=== PATIENT | female | born 1960 | race Caucasian/White ===

== ENCOUNTER 2024-01-08 14:19 | Observation (INO) | payer MEDICARE ==
[2024-01-08] VITALS (25 sets, daily range): BP systolic 112–219; BP diastolic 59–142
[~2024-01-08] VITALS: Ht 160 cm; Wt 70.0 kg
[2024-01-08 15:22] LABS: BASO% 0.3 % (0-3); EOS% 1.7 % (0-8); HEMATOCRIT 41.3 % (37.0-47.0); HEMOGLOBIN 13.3 g/dl (12.0-16.0); IMMATURE GRANULOCYTES 0.3 % (0.0-5.0); LYMPH% 11.9 % (15-41); MEAN CELL VOLUME 88.6 fL CALC (80.0-100.0); MEAN CORPUSCULAR HGB 28.5 pG CALC (26.0-32.0); MEAN CORPUSCULAR HGB CONC 32.2 g/dL CAL (32.0-36.0); MONO% 7.4 % (2-13); NEUT# 12.24 thou/uL (2.00-7.15); NEUT% 78.4 % (42-76); RED BLOOD COUNT 4.66 mill/uL (4.20-5.60); RED CELL DISTRI WIDTH 16.4 % (11.5-15.5)
--- NOTE | 2024-01-08 15:35 | NUR ---
PT AMBULATED TO ROOM 1 IN ER WITH 10/10 ABDOMINAL PAIN. AOX3, HYPERTENSIVE ON MONITOR, AWARE
[2024-01-08 15:37] LABS: ALBUMIN 4.3 g/dL (3.2-5.0); BILIRUBIN, TOTAL 0.6 mg/dL (0.02-1.3); CREATININE 1.3 mg/dL (0.5-1.0); POTASSIUM 3.9 mmol/l (3.5-5.1); TOTAL PROTEIN 7.6 g/dL (6.3-8.2)
[2024-01-08] MEDS ORDERED: ONDANSETRON HCl 4 MG/2 ML SDV IV ONE (15:55)
[2024-01-08] MEDS ORDERED: MORPHINE SULFATE 4 MG/ML VIAL IV ONE (15:55)
[2024-01-08 16:15] LABS: URINE BLOOD DIPSTICK Negative (NEGATIVE); URINE GLUCOSE - DIPSTICK Negative (NEGATIVE); URINE KETONE Trace mg/dL (NEGATIVE); URINE LEUK ESTERASE Negative (NEGATIVE); URINE NITRITE - DIPSTICK Negative (Negative); URINE PH 5.5 (4.5-8.0); URINE PROTEIN - DIPSTICK 100 mg/dL (NEG-TRACE); URINE SPECIFIC GRAVITY >=1.030; URINE UROBILINOGEN - DIPSTICK 0.2 E.U./dL (0.2)
[2024-01-08 16:20] LABS: URINE COLOR Yellow
[2024-01-08 16:28] LABS: URINE RBC 0-2 RBC/hpf (0-5); URINE SQUAMOUS EPITHELIAL CELL FEW EPI/hpf (0-FEW)
[2024-01-08 16:29] LABS: URINE BACTERIA MODERATE hpf
--- NOTE | 2024-01-08 16:35 | NUR ---
PT IS RESTING IN BED, CONTINUOUS MONITORING IN PLACE
[2024-01-08] MEDS ORDERED: LABETALOL HCL 100 MG/20 ML VIAL IV ONE (17:20)
--- NOTE | 2024-01-08 17:30 | NUR ---
PT RESTING IN BED WITH CALL LIGHT IN REACH, BP NORMALIZING
[2024-01-08] MEDS ORDERED: HYDROmorphone HCL 2 MG/AMP IV ONE (17:45)
--- NOTE | 2024-01-08 17:50 | NUR ---
PT HAS SUDDEN ONSET CHEST PAIN, DID STAT EKG AND MEDICATED WITH PAIN MEDS
[2024-01-08] MEDS ORDERED: PIPERACILLIN Sodium-Tazobactam 3.375 GM in SODIUM CHLORIDE 0.9% 100 ML IV ONE (18:20)
--- NOTE | 2024-01-08 18:50 | NUR ---
PT IS AOX3 RESTING ON M[employer] AUTHOR, BP NORMAL
--- NOTE | 2024-01-08 19:00 | NUR ---
REPORT RECEIVED FROM BACILIO BEDOLLA AND CARE RESUMED BY THIS NURSE AT THIS TIME. CALL LIGHT WITHIN REACH AND PT AWAITING RESULTS.
[2024-01-08] MEDS ORDERED: SODIUM CHLORIDE 0.9% 1,000 ML IV PRN (19:35)
[2024-01-08] MEDS ORDERED: ONDANSETRON HCl 4 MG/2 ML SDV IV PRN (19:35)
[2024-01-08] MEDS ORDERED: NITROGLYCERIN 0.4 MG/TAB SL PRN (19:35)
[2024-01-08] MEDS ORDERED: MAGNESIUM HYDROXIDE 30 ML UDC PO PRN (19:35)
[2024-01-08] MEDS ORDERED: MORPHINE SULFATE 4 MG/ML VIAL IV PRN (19:35)
[2024-01-08] MEDS ORDERED: ACETAMINOPHEN 325 MG/TAB PO PRN (19:35)
[2024-01-08] MEDS ORDERED: hydrALAZINE HCL 20 MG/ML VIAL(1 ML) IV PRN (19:35)
--- NOTE | 2024-01-08 19:56 | NUR ---
REPORT GIVEN TO BACILIO ROBERTS AND PT TO BE TRANSPORTED TO MED SURG. CALL LIGHT WITHIN REACH AND PT HAS NO NEEDS OR CONCERNS.
[2024-01-08] MEDS ORDERED: Pantoprazole Sodium 40 MG VIAL (Protonix) IV SCH (20:00)
--- NOTE | 2024-01-08 20:30 | NUR ---
Admission Note Report Given to: BACILIO ROBERTS Transported by: X Wheelchair Stretcher Transported with: X Nurse Transporter X Patent IV O2 X Test Architect Location: ICU X [facility]
[2024-01-08] MEDS ORDERED: DiphenhydrAMINE HCL 25 MG CPLT PO PRN (20:55)
[2024-01-08] MEDS ORDERED: traZODone HCL 50 MG/TAB PO SCH (21:00)
[2024-01-08] MEDS ORDERED: ATORVASTATIN CALCIUM 40 MG/TAB PO SCH (21:00)
[2024-01-08] MEDS ORDERED: METOPROLOL TARTRATE 25 MG/TAB PO SCH (21:00)
[2024-01-08] MEDS ORDERED: ENOXAPARIN SODIUM 40 MG/0.4 ML SYR SC SCH (21:00)
--- NOTE | 2024-01-08 22:00 | NUR ---
PATIENT REFUSED TO WEAR TELEMETRY, PATIENT STATED ALLERGY TO ADHESIVE, AND FURTHER STATING THAT SHE DOESN'T WANT ANOTHER PROBLEM IF SHE WILL WEAR TELEMETRY. PATIENT EDUCATED WHY SHE IS ON THE MONITOR, STILL REFUSED, MADE AWARE, AND ORDERED TO DO EKG NEEDED FOR CHEST PAIN, SISSY MADE AWARE TO NOTIFY NURSE FOR CHEST PAIN SO WE CAN DO EKG.PATIENT VERBALIZED UNDERSTANDING.
--- NOTE | 2024-01-08 22:04 | NUR ---
patient weight and vitals weight-73.4kg temp-98.2 resp-19 bp-147/79 pulse-86 o2-92
--- NOTE | 2024-01-08 23:00 | NUR ---
RECEIVED REPORT FROM NURSE ALVARADO. PATIENT ARRIVED IN MS UNIT AT 2030, TRANSPORTED VIA WHEELCAHIR,PATIENT ALERT ORIENTED, AMBULATORY, PATIENT ADMITTING DX: DIVERTICULITIS AND CHEST PAIN, ADMISSION ASSEMENT COMPLETED, PATIENT MED RECS DONE, PATIENT REFUSING TELEMETRY STATING ALLERGY TO ADHESIVE AND TEARS HER SKIN AND SHE MALICK HAVE ANOTHER PROBLEM. DR. LEONE MADE AWARE ORDERED EKG NEEDED FOR CHEST PAIN, PATIENT REFUSED TO WEAR NON SKID SOCKS, PATIENT CURRENTLY ON NS @ 100CC/HR INFUSING WELL, CALL LIGHT IN REACHED, SISSY ORIENTED TO ROOM AND CALL LIGHT SYSTEM.
--- NOTE | 2024-01-09 00:02 | NUR ---
PATIENT C/O PAIN ON ABDOMEN AND POUNDING HEADACHE PS 7/10, PRN MORPHINE GIVEN.
[2024-01-09] MEDS ORDERED: BENADRYL 25MG C25 MG PO (00:37)
[2024-01-09] MEDS ORDERED: TRAZODONE50 MG PO (00:38)
--- NOTE | 2024-01-09 03:57 | NUR ---
SISSY RESTIMGIN BED, EYES CLOSED, BREATHING EVEN UNLABORED, NOT IN DISTRESS, ELECTRONIC TESTER IN ROOM FOR MORNING LABS, CALL LIGHT IN REACHED,
[2024-01-09 03:58] VITALS: BP 166/92
[2024-01-09 04:18] VITALS: BP 166/92
[2024-01-09 04:46] LABS: BASO% 0.2 % (0-3); EOS% 0.3 % (0-8); HEMATOCRIT 36.3 % (37.0-47.0); HEMOGLOBIN 11.4 g/dl (12.0-16.0); IMMATURE GRANULOCYTES 0.2 % (0.0-5.0); LYMPH% 16.8 % (15-41); MEAN CELL VOLUME 90.5 fL CALC (80.0-100.0); MEAN CORPUSCULAR HGB 28.4 pG CALC (26.0-32.0); MEAN CORPUSCULAR HGB CONC 31.4 g/dL CAL (32.0-36.0); MONO% 8.6 % (2-13); NEUT# 9.79 thou/uL (2.00-7.15); NEUT% 73.9 % (42-76); RED BLOOD COUNT 4.01 mill/uL (4.20-5.60); RED CELL DISTRI WIDTH 16.7 % (11.5-15.5)
[2024-01-09 05:20] LABS: ALBUMIN 3.5 g/dL (3.2-5.0); BILIRUBIN, TOTAL 0.5 mg/dL (0.02-1.3); CHOLESTEROL HDL RATIO 4.1 (<4.4 (CALC)); CREATININE 1.4 mg/dL (0.5-1.0); MAGNESIUM 1.9 mg/dL (1.6-2.3); POTASSIUM 3.8 mmol/l (3.5-5.1); TOTAL PROTEIN 6.4 g/dL (6.3-8.2)
--- NOTE | 2024-01-09 07:28 | NUR ---
PATIENT LAYING IN BED. PATIENT A&OX4 AND ABLE TO MAKE NEEDS KNOWN. PATIENT ABDOMEN SOFT AND TENDER TO TOUCH PER PAYIENT, RESPIRATIONS EVEN AND UNLABORED. PATIENT REFUSED TO WEAR TELE DUE TO ALLERGIC TO ADHESIVE, MD IS AWARE. PATIENT DENIES ANY NEEDS AT THIS TIME. WILL CONTINUE TO MONITOR.
[2024-01-09] MEDS ORDERED: amLODIPine BESYLATE 5 MG/TAB PO SCH (09:00)
[2024-01-09] MEDS ORDERED: ASPIRIN 81 MG/TAB PO SCH (09:00)
[2024-01-09 09:04] VITALS: BP 164/77
[2024-01-09 11:26] VITALS: BP 152/83
[2024-01-09] MEDS ORDERED: PIPERACILLIN Sodium-Tazobactam 3.375 GM in SODIUM CHLORIDE 0.9% 100 ML IV SCH ×2 (12:00)
--- NOTE | 2024-01-09 12:02 | NUR ---
PATIENT SITTING UP IN BED HAVING LUNCH. PATIENT DENIES ANY NEEDS AT THIS TIME. WILL CONTINUE TO MONITOR.
[2024-01-09 14:58] VITALS: BP 182/97
--- NOTE | 2024-01-09 16:00 | NUR ---
PATIENT LAYING IN BED. PATIENT DENIES ANY NEEDS AT THIS TIME. WILL CONTINUE TO MONITOR.
[2024-01-09 19:09] VITALS: BP 143/83
--- NOTE | 2024-01-09 19:58 | NUR ---
PATIENT IN BED ASLEEP. BED SIDE ASSESMENT COMPLETE. CLEAR LUNG LOVETT. EQUAL PUPULS 3. PATIENT CAN MAKE NEEDS KNOWN. PATIENT REQUESTED A SHOWER, SET PATIENT UP WITH ITEMS FOR SHOWER. BED AT LOWEST POSITION CALL LIGHT WITHIN REACH. TELE ORDER DC PER PROVIDER.
--- NOTE | 2024-01-09 20:00 | NUR ---
Janeth MONTALVO NOTIFIED OF PATIENT REFUSAL TO WEAR [employer] DEVELOPER. ORDER RECEIVED TO DC MONITOR.
--- NOTE | 2024-01-10 00:05 | NUR ---
patient asleep on left side. no distress noted, no signs of pain noted. bed at lowest position, call light within reach.
[2024-01-10 03:43] VITALS: BP 171/82
--- NOTE | 2024-01-10 04:01 | NUR ---
patient asleep in bed on right side. responds to verbal stimuli. can make needs known. call light within reach. bed at lowest position.
[2024-01-10 05:08] VITALS: BP 181/99
[2024-01-10 05:10] LABS: BASO% 0.7 % (0-3); EOS% 1.9 % (0-8); HEMATOCRIT 32.7 % (37.0-47.0); HEMOGLOBIN 10.3 g/dl (12.0-16.0); IMMATURE GRANULOCYTES 0.2 % (0.0-5.0); MEAN CELL VOLUME 91.6 fL CALC (80.0-100.0); MEAN CORPUSCULAR HGB 28.9 pG CALC (26.0-32.0); MEAN CORPUSCULAR HGB CONC 31.5 g/dL CAL (32.0-36.0); MONO% 11.1 % (2-13); NEUT# 6.54 thou/uL (2.00-7.15); NEUT% 61.1 % (42-76); RED BLOOD COUNT 3.57 mill/uL (4.20-5.60); RED CELL DISTRI WIDTH 16.4 % (11.5-15.5)
[2024-01-10 05:20] LABS: BILIRUBIN, TOTAL 0.4 mg/dL (0.02-1.3); CREATININE 1.3 mg/dL (0.5-1.0); POTASSIUM 3.7 mmol/l (3.5-5.1); TOTAL PROTEIN 5.7 g/dL (6.3-8.2)
[2024-01-10 07:01] VITALS: BP 171/101
--- NOTE | 2024-01-10 07:17 | NUR ---
KATIA CHERRY NOTIFIED OF PATIENT REFUSAL TO WEAR SENIOR ECONOMIST. ORDER RECEIVED TO
--- NOTE | 2024-01-10 07:24 | NUR ---
SISSY A/O X3; ROOM AIR; BREATHING UNLABORED AND EVEN; DENIED ANY PAIN; DENIED ANY N/D/V AT THIS TIME; STATES SHE FEELS HER BOWELS ARE MOVING; NO S/S OF DISTRESS; IV SITE IN RAC CLEAN AND INTACT SALINE LOCKED WITH NO ISSUES; MEDICATION REVIWED; ASK HER ABOUT HER BP, SHE STATES SHE ALWAYS HAVE HYPERTENTION; PATIENT SITTING UP RIGHT IN CHAIR; NO COMPLAINTS AT THIS TIME;CALL LIGHT WITHIN REACH,VERBALIZED UNDERSTANDING ON HOW TO UE, PERSONAL ITEMS WITHIN REACH,BED IN LOWEST POSTION; LIMB ALERT SIGN ABOVE BED
--- NOTE | 2024-01-10 07:34 | NUR ---
PER Calli MONTALVO, TELE MONITORING WAS REORDERED. TELE #05 WAS RETRIEVED FROM THE ED AND PLACED AT THE NURSING DESK DUE TO PATIENT REFUSAL.
--- NOTE | 2024-01-10 08:53 | NUR ---
PATIENT BLOOD PRESSURE IS 203/94, INFORMED ORIN ANRP, PROVIDER INCREASED NORVAC TO 10 MG AND ADDED LOPRESSOR; PATIENT INFORMED; WILL RECHECK BLOOD PRESSURE IN ONE HOUR
[2024-01-10] MEDS ORDERED: LOSARTAN Potassium 25 MG/TAB PO SCH ×2 (09:00→11:00)
[2024-01-10] MEDS ORDERED: amLODIPine BESYLATE 5 MG/TAB PO SCH (09:00)
--- NOTE | 2024-01-10 09:23 | NUR ---
PATIENT REFUSES TO WEAR HER LIMB [place]ART [employer] PROVIDER AWARE
[2024-01-10] MEDS ORDERED: ASPIRIN81 MG PO (10:01)
[2024-01-10] MEDS ORDERED: ATORVASTATIN CA40 MG PO (10:02)
[2024-01-10] MEDS ORDERED: COZAAR100 MG PO (10:03)
[2024-01-10] MEDS ORDERED: AMLODIPINE BESY10 MG PO (10:03)
[2024-01-10] MEDS ORDERED: METRONIDAZOLE500 MG PO (10:04)
[2024-01-10] MEDS ORDERED: CIPROFLOXACN500 MG PO (10:04)
--- NOTE | 2024-01-10 10:16 | NUR ---
RECHECKED PATIENT BLOOD PRESSURE 194/95 PULSE IS 74, PROVIDER ORIN AWARE
[2024-01-10 11:20] VITALS: BP 203/94
--- NOTE | 2024-01-10 12:18 | NUR ---
IV site discontinued, cath intact. No edema , no redness, voices no discomfort. Discharge instructions given. Patient verbalizes understanding of same. Discharged in stable condition via Wheelchair to Home with family. All belongings sent with pt.
== END 2024-01-10 12:20 | disposition home or self-care (01) ==
LOC: ED 14:19 → ED-I 19:10 → ED 19:22 → MS2 19:23
PROVIDERS: Family Medicine; Nurse Practitioner Family; ADMIT Student in an Organized Health Care Education/Training Program; ATTEND Student in an Organized Health Care Education/Training Program
DX: K57.32 Diverticulitis of large intestine without perforation or abscess without bleeding (principal); R07.9 Chest pain, unspecified; I10 Essential (primary) hypertension; I25.10 Atherosclerotic heart disease of native coronary artery without angina pectoris; J44.9 Chronic obstructive pulmonary disease, unspecified; I25.2 Old myocardial infarction; F17.210 Nicotine dependence, cigarettes, uncomplicated; Z95.5 Presence of coronary angioplasty implant and graft; Z90.49 Acquired absence of other specified parts of digestive tract; Z91.199 Patient's noncompliance with other medical treatment and regimen due to unspecified reason
CPT/HCPCS: J1650; J2470; Q9967

== ENCOUNTER 2024-06-11 19:23 | Emergency (ER) | payer MEDICARE ==
[2024-06-11] VITALS (10 sets, daily range): BP systolic 172–212; BP diastolic 104–122
[~2024-06-11] VITALS: Ht 160 cm; Wt 75.0 kg
[~2024-06-11 19:23] MED LIST: AMLODIPINE BESY10 MG PO; ASPIRIN81 MG PO; ATORVASTATIN CA40 MG PO; BENADRYL 25MG C25 MG PO; CIPROFLOXACN500 MG PO; COZAAR100 MG PO; COZAAR25 MG PO; LASIX20 MG PO; METRONIDAZOLE500 MG PO; OMNICEF300 MG PO; TAMIFLU30 MG PO; TOPROL XL25 M1 PO; TRAZODONE50 MG PO; ZITHROMAX250 MG PO; ZOFRAN4 MG/TAB PO
[2024-06-11] MEDS ORDERED: traMADol HCL 50 MG/TAB PO ONE (19:50)
[2024-06-11] MEDS ORDERED: KETOROLAC TROMETHAMINE 30 MG/ML SDV IV ONE (19:50)
[2024-06-11 19:52] LABS: BASO% 0.4 % (0-3); EOS% 1.2 % (0-8); HEMATOCRIT 33.2 % (37.0-47.0); IMMATURE GRANULOCYTES 0.2 % (0.0-5.0); LYMPH% 21.6 % (15-41); MEAN CORPUSCULAR HGB 25.1 pG CALC (26.0-32.0); MEAN CORPUSCULAR HGB CONC 30.1 g/dL CAL (32.0-36.0); MONO% 6.1 % (2-13); NEUT# 6.54 thou/uL (2.00-7.15); NEUT% 70.5 % (42-76); RED BLOOD COUNT 3.99 mill/uL (4.20-5.60); RED CELL DISTRI WIDTH 16.9 % (11.5-15.5)
[2024-06-11 19:53] LABS: MEAN CELL VOLUME 83.2 fL CALC (80.0-100.0)
[2024-06-11 20:03] LABS: ALBUMIN 4.3 g/dL (3.2-5.0); CREATININE 1.3 mg/dL (0.5-1.0); POTASSIUM 3.4 mmol/l (3.5-5.1); TOTAL PROTEIN 7.9 g/dL (6.3-8.2)
[2024-06-11 20:05] LABS: BILIRUBIN, TOTAL 0.5 mg/dL (0.02-1.3)
[2024-06-11] MEDS ORDERED: METOPROLOL TARTRATE 25 MG/TAB PO ONE (20:10)
[2024-06-11] MEDS ORDERED: METOPROLOL TARTRATE 5 MG/5 ML VIAL IV ONE (20:10)
[2024-06-11] MEDS ORDERED: SODIUM CHLORIDE 0.9% 1,000 ML IV ONE (20:10)
[2024-06-11 20:13] LABS: D-DIMER < 0.19 mg/L (0.19-0.60)
[2024-06-11 20:14] LABS: INTERNATIONAL NORMALIZED RATIO 1.1 RATIO (0.7-1.3)
[2024-06-11 20:18] LABS: ACT PARTIAL THROMBO TIME 37.8 SECONDS (20.0-32.5); PROTHROMBIN TIME 11.8 SECONDS (9.0-12.5)
[2024-06-11] MEDS ORDERED: NITROGLYCERIN 2% OINT UD 1 GM/PAK TD ONE (20:30)
[2024-06-11] MEDS ORDERED: Heparin SODIUM (Porcine) 5,000 UNITS/ML SDV IV ONE (20:30)
[2024-06-11] MEDS ORDERED: Heparin SODIUM (Porcine) 500 ML IV ONE (20:30)
[2024-06-11] MEDS ORDERED: MORPHINE SULFATE 4 MG/ML VIAL IV ONE ×2 (20:30→21:10)
[2024-06-11] MEDS ORDERED: NITROGLYCERIN IN D5W 250 ML IV ONE (21:10)
[2024-06-11] MEDS ORDERED: SODIUM CHLORIDE 0.9% 250 ML IV PRN (21:10)
== END 2024-06-11 21:19 | disposition short-term general hospital (02) ==
LOC: ED 19:23
PROVIDERS: Family Medicine
DX: R07.9 Chest pain, unspecified (principal); R79.89 Other specified abnormal findings of blood chemistry; I10 Essential (primary) hypertension; I25.10 Atherosclerotic heart disease of native coronary artery without angina pectoris; J44.9 Chronic obstructive pulmonary disease, unspecified; I25.2 Old myocardial infarction; F17.200 Nicotine dependence, unspecified, uncomplicated; Z95.5 Presence of coronary angioplasty implant and graft
CPT/HCPCS: J1644

== ENCOUNTER 2024-08-09 20:48 | Inpatient (IN) | payer MEDICARE ==
[~2024-08-09] VITALS: Ht 160 cm; Wt 76.1 kg
[2024-08-09] MEDS ORDERED: IPRATROPIUM-Albuterol 0.5MG-2.5MG/3 ML NEB ONE (21:25)
[2024-08-09] MEDS ORDERED: ALBUTEROL SULFATE 2.5 MG VIAL IN ONE (21:25)
[2024-08-09 21:48] LABS: BASO% 0.7 % (0-3); EOS% 1.6 % (0-8); HEMATOCRIT 28.5 % (37.0-47.0); HEMOGLOBIN 8.3 g/dl (12.0-16.0); IMMATURE GRANULOCYTES 0.3 % (0.0-5.0); LYMPH% 24.7 % (15-41); MEAN CELL VOLUME 82.6 fL CALC (80.0-100.0); MEAN CORPUSCULAR HGB 24.1 pG CALC (26.0-32.0); MEAN CORPUSCULAR HGB CONC 29.1 g/dL CAL (32.0-36.0); MONO% 6.2 % (2-13); NEUT# 5.97 thou/uL (2.00-7.15); NEUT% 66.5 % (42-76); RED BLOOD COUNT 3.45 mill/uL (4.20-5.60)
[2024-08-09 21:59] LABS: ALBUMIN 4.1 g/dL (3.2-5.0); BILIRUBIN, TOTAL 0.6 mg/dL (0.02-1.3); CREATININE 1.3 mg/dL (0.5-1.0); POTASSIUM 3.5 mmol/l (3.5-5.1); TOTAL PROTEIN 7.4 g/dL (6.3-8.2)
[2024-08-09 23:16] VITALS: BP 198/107
[2024-08-09 23:30] VITALS: BP 214/122
[2024-08-09 23:32] VITALS: BP 209/122
[2024-08-09] MEDS ORDERED: FUROSEMIDE 40 MG/4 ML SDV IV ONE (23:35)
[2024-08-09] MEDS ORDERED: NITROGLYCERIN 2% OINT UD 1 GM/PAK TD ONE (23:40)
[2024-08-09 23:53] VITALS: BP 213/125
[2024-08-09] MEDS ORDERED: LABETALOL HCL 20 MG/ 4 ML CARTRG IV ONE (23:55)
[2024-08-10] VITALS (41 sets, daily range): BP systolic 134–215; BP diastolic 68–121
[2024-08-10] MEDS ORDERED: MORPHINE SULFATE 4 MG/ML VIAL IV ONE (00:55)
[2024-08-10] MEDS ORDERED: ONDANSETRON HCl 4 MG/2 ML SDV IV ONE (00:55)
[2024-08-10] MEDS ORDERED: LORazepam 2 MG/ML IV ONE (02:10)
[2024-08-10] MEDS ORDERED: LORazepam 1 MG/TAB PO ONE (02:30)
[2024-08-10] MEDS ORDERED: IPRATROPIUM-Albuterol 0.5MG-2.5MG/3 ML NEB PRN (05:20)
[2024-08-10] MEDS ORDERED: FUROSEMIDE 40 MG/4 ML SDV IV SCH ×3 (07:00→11:00)
[2024-08-10 07:44] LABS: BASO% 0.5 % (0-3); EOS% 1.8 % (0-8); HEMATOCRIT 26.6 % (37.0-47.0); HEMOGLOBIN 7.9 g/dl (12.0-16.0); IMMATURE GRANULOCYTES 0.4 % (0.0-5.0); LYMPH% 30.8 % (15-41); MEAN CELL VOLUME 82.6 fL CALC (80.0-100.0); MEAN CORPUSCULAR HGB 24.5 pG CALC (26.0-32.0); MEAN CORPUSCULAR HGB CONC 29.7 g/dL CAL (32.0-36.0); MONO% 8.3 % (2-13); NEUT# 4.98 thou/uL (2.00-7.15); NEUT% 58.2 % (42-76); RED BLOOD COUNT 3.22 mill/uL (4.20-5.60)
[2024-08-10 08:16] LABS: ALBUMIN 3.8 g/dL (3.2-5.0); BILIRUBIN, TOTAL 0.6 mg/dL (0.02-1.3); CREATININE 1.3 mg/dL (0.5-1.0); POTASSIUM 3.7 mmol/l (3.5-5.1)
[2024-08-10] MEDS ORDERED: LOSARTAN Potassium 25 MG/TAB PO SCH (09:00)
[2024-08-10] MEDS ORDERED: SODIUM CHLORIDE 0.9% 500 ML IV ONE (10:20)
[2024-08-10] MEDS ORDERED: predniSONE 20 MG/TAB PO SCH (11:00)
[2024-08-10] MEDS ORDERED: AZITHROMYCIN 500 MG in SODIUM CHLORIDE 0.9% 250 ML IV SCH (12:00)
[2024-08-10] MEDS ORDERED: traMADol HCL 50 MG/TAB PO PRN (12:30)
[2024-08-10] MEDS ORDERED: IPRATROPIUM-Albuterol 0.5MG-2.5MG/3 ML NEB SCH (13:00)
[2024-08-10] MEDS ORDERED: FUROSEMIDE20 MG PO (13:48)
[2024-08-10] MEDS ORDERED: METOPROLOL SUCC50 MG PO (13:49)
[2024-08-10] MEDS ORDERED: LIPITOR40 M1 PO (13:50)
[2024-08-11 04:07] VITALS: BP 154/84
[2024-08-11 05:16] LABS: BASO% 0.3 % (0-3); HEMATOCRIT 26.2 % (37.0-47.0); HEMOGLOBIN 7.7 g/dl (12.0-16.0); IMMATURE GRANULOCYTES 1.7 % (0.0-5.0); MEAN CELL VOLUME 84.2 fL CALC (80.0-100.0); MEAN CORPUSCULAR HGB 24.8 pG CALC (26.0-32.0); MEAN CORPUSCULAR HGB CONC 29.4 g/dL CAL (32.0-36.0); MONO% 2.8 % (2-13); NEUT# 5.01 thou/uL (2.00-7.15); NEUT% 79.2 % (42-76); RED BLOOD COUNT 3.11 mill/uL (4.20-5.60); RED CELL DISTRI WIDTH 19.7 % (11.5-15.5)
[2024-08-11 05:28] LABS: ALBUMIN 3.5 g/dL (3.2-5.0); BILIRUBIN, TOTAL 0.4 mg/dL (0.02-1.3); CREATININE 1.4 mg/dL (0.5-1.0); TOTAL PROTEIN 6.6 g/dL (6.3-8.2)
[2024-08-11 07:00] VITALS: BP 149/88
[2024-08-11] MEDS ORDERED: Pantoprazole Sodium 40 MG VIAL (Protonix) IV SCH ×2 (10:30→21:00)
[2024-08-11 11:00] LABS: HEMATOCRIT 27.8 % (37.0-47.0)
[2024-08-11 11:12] VITALS: BP 155/84
[2024-08-11 17:29] LABS: HEMATOCRIT 28.4 % (37.0-47.0); HEMOGLOBIN 8.3 g/dl (12.0-16.0)
[2024-08-11 18:18] VITALS: BP 143/71
[2024-08-11] MEDS ORDERED: ARTIFICIAL TEAR OU PRN (22:25)
[2024-08-11] MEDS ORDERED: ARTIFICIAL TEARS SOLUTION 15 ML/BTL OU PRN (22:25)
[2024-08-11 23:05] LABS: HEMOGLOBIN 8.1 g/dl (12.0-16.0)
[2024-08-12] VITALS: BP 150/85
[2024-08-12 04:28] VITALS: BP 151/92
[2024-08-12 05:05] LABS: BASO% 0.1 % (0-3); HEMATOCRIT 27.8 % (37.0-47.0); IMMATURE GRANULOCYTES 3.1 % (0.0-5.0); LYMPH% 17.4 % (15-41); MEAN CELL VOLUME 83.5 fL CALC (80.0-100.0); MEAN CORPUSCULAR HGB CONC 28.8 g/dL CAL (32.0-36.0); MONO% 3.7 % (2-13); NEUT# 5.66 thou/uL (2.00-7.15); NEUT% 75.7 % (42-76); RED BLOOD COUNT 3.33 mill/uL (4.20-5.60)
[2024-08-12 05:14] LABS: ALBUMIN 3.8 g/dL (3.2-5.0); BILIRUBIN, TOTAL 0.4 mg/dL (0.02-1.3); CREATININE 1.5 mg/dL (0.5-1.0); MAGNESIUM 2.1 mg/dL (1.6-2.3); POTASSIUM 4.1 mmol/l (3.5-5.1); TOTAL PROTEIN 6.9 g/dL (6.3-8.2)
[2024-08-12 06:01] VITALS: BP 157/82
[2024-08-12 10:34] LABS: URINE BILIRUBIN - DIPSTICK Negative (NEGATIVE); URINE BLOOD DIPSTICK Negative (NEGATIVE); URINE GLUCOSE - DIPSTICK Negative (NEGATIVE); URINE KETONE Negative (NEGATIVE); URINE LEUK ESTERASE Negative (NEGATIVE); URINE NITRITE - DIPSTICK Negative (Negative); URINE PROTEIN - DIPSTICK Trace mg/dL (NEG-TRACE); URINE UROBILINOGEN - DIPSTICK 0.2 E.U./dL (0.2)
[2024-08-12 10:39] VITALS: BP 148/80
[2024-08-12 10:50] LABS: URINE COLOR Yellow
[2024-08-12 15:11] VITALS: BP 172/104
[2024-08-12 19:17] VITALS: BP 150/81
[2024-08-13 00:05] VITALS: BP 164/95
[2024-08-13 04:32] LABS: BASO% 0.1 % (0-3); HEMATOCRIT 27.1 % (37.0-47.0); HEMOGLOBIN 8.1 g/dl (12.0-16.0); IMMATURE GRANULOCYTES 2.2 % (0.0-5.0); LYMPH% 19.9 % (15-41); MEAN CELL VOLUME 81.9 fL CALC (80.0-100.0); MEAN CORPUSCULAR HGB 24.5 pG CALC (26.0-32.0); MEAN CORPUSCULAR HGB CONC 29.9 g/dL CAL (32.0-36.0); MONO% 4.9 % (2-13); NEUT# 5.55 thou/uL (2.00-7.15); NEUT% 72.9 % (42-76); RED BLOOD COUNT 3.31 mill/uL (4.20-5.60); RED CELL DISTRI WIDTH 19.8 % (11.5-15.5)
[2024-08-13 04:43] LABS: ALBUMIN 3.7 g/dL (3.2-5.0); BILIRUBIN, TOTAL 0.4 mg/dL (0.02-1.3); CREATININE 1.5 mg/dL (0.5-1.0); MAGNESIUM 2.1 mg/dL (1.6-2.3); POTASSIUM 3.8 mmol/l (3.5-5.1); TOTAL PROTEIN 6.7 g/dL (6.3-8.2)
[2024-08-13 06:37] VITALS: BP 161/93
[2024-08-13] MEDS ORDERED: METOPROLOL SUCC50 MG PO (10:08)
[2024-08-13] MEDS ORDERED: LIPITOR40 M1 PO (10:08)
[2024-08-13] MEDS ORDERED: FUROSEMIDE20 MG PO (10:09)
[2024-08-13] MEDS ORDERED: LOSARTAN POTASS25 MG PO (10:09)
[2024-08-13] MEDS ORDERED: PROTONIX40 M2 PO (10:10)
[2024-08-13] MEDS ORDERED: DOXYCYCLINE100 MG PO (10:11)
[2024-08-13] MEDS ORDERED: PREDNISONE10 MG PO (10:11)
[2024-08-13] MEDS ORDERED: LEXAPRO10 MG PO (10:12)
[2024-08-13] MEDS ORDERED: SODIUM CHLORIDE 0.9% 0 ML IV ONE (10:34)
[2024-08-13] MEDS ORDERED: IRON SUCROSE COMPLEX 200 MG in SODIUM CHLORIDE 0.9% 100 ML IV SCH (11:00)
== END 2024-08-13 13:59 | disposition home or self-care (01) | DRG 291 ==
LOC: ED 20:48 → ED-I 08-10 04:57 → ED 08-10 05:12 → MS2 08-10 05:13
PROVIDERS: Family Medicine; Internal Medicine; Nurse Practitioner Family; ADMIT Internal Medicine; ATTEND Internal Medicine
DX: I13.0 Hypertensive heart and chronic kidney disease with heart failure and stage 1 through stage 4 chronic kidney disease, or unspecified chronic kidney disease (principal); I50.33 Acute on chronic diastolic (congestive) heart failure; J18.9 Pneumonia, unspecified organism; J44.1 Chronic obstructive pulmonary disease with (acute) exacerbation; J44.0 Chronic obstructive pulmonary disease with (acute) lower respiratory infection; D63.1 Anemia in chronic kidney disease; N18.31 Chronic kidney disease, stage 3a; I25.10 Atherosclerotic heart disease of native coronary artery without angina pectoris; F32.A Depression, unspecified; F17.290 Nicotine dependence, other tobacco product, uncomplicated; T46.5X6A Underdosing of other antihypertensive drugs, initial encounter; Z91.128 Patient's intentional underdosing of medication regimen for other reason; Z95.5 Presence of coronary angioplasty implant and graft; Z59.89 Other problems related to housing and economic circumstances; Z53.20 Procedure and treatment not carried out because of patient's decision for unspecified reasons
CPT/HCPCS: J0456; J0696; J1756; J1940; J2405; J2470; Q9967

== ENCOUNTER 2024-08-15 03:58 | Emergency (ER) | payer MEDICARE ==
[~2024-08-15] VITALS: Ht 160 cm; Wt 68.0 kg
[~2024-08-15 03:58] MED LIST changes: +DOXYCYCLINE100 MG PO; +FUROSEMIDE20 MG PO; +LEXAPRO10 MG PO; +LIPITOR40 M1 PO; +LOSARTAN POTASS25 MG PO; +METOPROLOL SUCC50 MG PO; +PREDNISONE10 MG PO; +PROTONIX40 M2 PO
[2024-08-15 04:28] VITALS: BP 208/116
[2024-08-15 04:28] LABS: BASO% 0.1 % (0-3); EOS% 2.1 % (0-8); LYMPH% 33.3 % (15-41); MEAN CELL VOLUME 82.9 fL CALC (80.0-100.0); MEAN CORPUSCULAR HGB 24.4 pG CALC (26.0-32.0); MEAN CORPUSCULAR HGB CONC 29.5 g/dL CAL (32.0-36.0); MONO% 10.9 % (2-13); NEUT# 6.96 thou/uL (2.00-7.15); NEUT% 51.6 % (42-76); RED BLOOD COUNT 4.09 mill/uL (4.20-5.60); RED CELL DISTRI WIDTH 19.8 % (11.5-15.5)
[2024-08-15 04:30] VITALS: BP 198/114
[2024-08-15] MEDS ORDERED: ENALAPRILAT 1.25 MG/ML 1ML IV ONE ×2 (04:30→04:50)
[2024-08-15 04:40] LABS: BILIRUBIN, TOTAL 0.5 mg/dL (0.02-1.3); CREATININE 1.5 mg/dL (0.5-1.0); POTASSIUM 3.3 mmol/l (3.5-5.1); TOTAL PROTEIN 7.3 g/dL (6.3-8.2)
[2024-08-15] MEDS ORDERED: IPRATROPIUM-Albuterol 0.5MG-2.5MG/3 ML NEB ONE (04:50)
[2024-08-15 04:51] LABS: HEMATOCRIT 33.9 % (37.0-47.0)
[2024-08-15 04:59] LABS: ACT PARTIAL THROMBO TIME 29.2 SECONDS (20.0-32.5); D-DIMER 0.43 mg/L (0.19-0.60); INTERNATIONAL NORMALIZED RATIO 1.1 RATIO (0.7-1.3)
[2024-08-15 05:00] VITALS: BP 199/110
[2024-08-15 05:02] LABS: PROTHROMBIN TIME 11.4 SECONDS (9.0-12.5)
[2024-08-15 05:26] VITALS: BP 146/71
[2024-08-15 05:30] VITALS: BP 152/75
[2024-08-15] MEDS ORDERED: POTASSIUM CHLORIDE 20 MEQ/TAB PO ONE (05:30)
[2024-08-15] MEDS ORDERED: FUROSEMIDE 40 MG/4 ML SDV IV ONE (05:30)
[2024-08-15 05:42] VITALS: BP 152/75
--- NOTE | 2024-08-15 12:21 | NUR ---
Discharge follow up call completed 08/15/24. Patient states she is having terrible pain that is traveling to her lower extremities in addition to the remainder of her body. Patient describes it as a nerve type pain. Patient returned to [facility] ED last night but they did not resolve her issues. Patient states her PCP is in [place]. She has seen local physician but has not called him to schedule a follow up appointment. Encouraged patient to either contact local provider or to return to ED if symptoms continue to intensify or do not improve. Notified [facility] of patient conversation and they will inform hospitalist and determine if their office will reach out to patient. No other needs verbalized by patient.
== END 2024-08-15 05:50 | disposition home or self-care (01) ==
LOC: ED 03:58
PROVIDERS: Emergency Medicine
DX: J10.00 Influenza due to other identified influenza virus with unspecified type of pneumonia (principal); I25.10 Atherosclerotic heart disease of native coronary artery without angina pectoris; I11.0 Hypertensive heart disease with heart failure; I50.9 Heart failure, unspecified; J44.9 Chronic obstructive pulmonary disease, unspecified; E78.5 Hyperlipidemia, unspecified; I25.2 Old myocardial infarction; Z95.5 Presence of coronary angioplasty implant and graft; Z20.822 Contact with and (suspected) exposure to COVID-19
CPT/HCPCS: J1940

== ENCOUNTER 2024-08-30 16:23 | Inpatient (IN) | payer MEDICARE ==
[2024-08-30] VITALS (28 sets, daily range): BP systolic 96–184; BP diastolic 56–111
[~2024-08-30] VITALS: Ht 160 cm; Wt 73.4 kg
[2024-08-30] MEDS ORDERED: IPRATROPIUM-Albuterol 0.5MG-2.5MG/3 ML NEB ONE ×3 (16:50)
[2024-08-30] MEDS ORDERED: methylPREDNISolone SODIUM SUCC 125 MG/2 ML SDV IV ONE (16:50)
[2024-08-30] MEDS ORDERED: FUROSEMIDE 40 MG/4 ML SDV IV ONE (16:50)
[2024-08-30 17:05] LABS: BASO% 0.4 % (0-3); EOS% 1.6 % (0-8); IMMATURE GRANULOCYTES 0.5 % (0.0-5.0); LYMPH% 20.2 % (15-41); MEAN CELL VOLUME 83.5 fL CALC (80.0-100.0); MEAN CORPUSCULAR HGB CONC 28.7 g/dL CAL (32.0-36.0); MONO% 7.6 % (2-13); NEUT# 5.92 thou/uL (2.00-7.15); NEUT% 69.7 % (42-76); RED BLOOD COUNT 3.34 mill/uL (4.20-5.60); RED CELL DISTRI WIDTH 20.6 % (11.5-15.5)
[2024-08-30 17:08] LABS: HEMATOCRIT 27.9 % (37.0-47.0)
[2024-08-30 17:10] LABS: BILIRUBIN, TOTAL 0.7 mg/dL (0.02-1.3); CREATININE 1.1 mg/dL (0.5-1.0); TOTAL PROTEIN 7.7 g/dL (6.3-8.2)
[2024-08-30 17:20] LABS: POTASSIUM 4.1 mmol/l (3.5-5.1)
[2024-08-30] MEDS ORDERED: NITROGLYCERIN 2% OINT UD 1 GM/PAK TD ONE (18:20)
[2024-08-30 19:11] LABS: URINE BILIRUBIN - DIPSTICK Negative (NEGATIVE); URINE BLOOD DIPSTICK Negative (NEGATIVE); URINE GLUCOSE - DIPSTICK Negative (NEGATIVE); URINE KETONE Negative (NEGATIVE); URINE LEUK ESTERASE Negative (NEGATIVE); URINE NITRITE - DIPSTICK Negative (Negative); URINE PROTEIN - DIPSTICK Negative (NEG-TRACE); URINE UROBILINOGEN - DIPSTICK 0.2 E.U./dL (0.2)
[2024-08-30 19:12] LABS: URINE COLOR Yellow
[2024-08-30] MEDS ORDERED: Acetaminophen 300 MG/Codeine 30 MG/COMBO PO ONE (19:40)
[2024-08-30] MEDS ORDERED: ASPIRIN 81 MG/TAB PO ONE (19:40)
[2024-08-30] MEDS ORDERED: LOSARTAN Potassium 25 MG/TAB PO SCH (21:59)
[2024-08-30] MEDS ORDERED: MAGNESIUM HYDROXIDE 30 ML UDC PO PRN (22:00)
[2024-08-30] MEDS ORDERED: ACETAMINOPHEN 325 MG/TAB PO PRN (22:00)
[2024-08-30] MEDS ORDERED: FUROSEMIDE 40 MG/4 ML SDV IV SCH (22:02)
[2024-08-30] MEDS ORDERED: cloNIDine HCL 0.1 MG/TAB PO ONE ×2 (22:25)
[2024-08-30] MEDS ORDERED: IPRATROPIUM-Albuterol 0.5MG-2.5MG/3 ML NEB SCH (23:00)
[2024-08-30] MEDS ORDERED: AZITHROMYCIN 500 MG in SODIUM CHLORIDE 0.9% 250 ML IV SCH (23:45)
[2024-08-31] VITALS (14 sets, daily range): BP systolic 113–183; BP diastolic 67–100
[2024-08-31 03:37] LABS: BASO% 0.3 % (0-3); HEMATOCRIT 25.6 % (37.0-47.0); HEMOGLOBIN 7.3 g/dl (12.0-16.0); IMMATURE GRANULOCYTES 0.9 % (0.0-5.0); MEAN CELL VOLUME 82.6 fL CALC (80.0-100.0); MEAN CORPUSCULAR HGB 23.5 pG CALC (26.0-32.0); MEAN CORPUSCULAR HGB CONC 28.5 g/dL CAL (32.0-36.0); MONO% 1.3 % (2-13); NEUT# 6.53 thou/uL (2.00-7.15); NEUT% 87.5 % (42-76); RED BLOOD COUNT 3.1 mill/uL (4.20-5.60); RED CELL DISTRI WIDTH 20.5 % (11.5-15.5)
[2024-08-31 03:46] LABS: ALBUMIN 3.5 g/dL (3.2-5.0); CREATININE 1.2 mg/dL (0.5-1.0); POTASSIUM 4.2 mmol/l (3.5-5.1); TOTAL PROTEIN 6.7 g/dL (6.3-8.2)
[2024-08-31 03:49] LABS: BILIRUBIN, TOTAL 0.4 mg/dL (0.02-1.3)
[2024-08-31] MEDS ORDERED: methylPREDNISolone Sod Succ 40 MG/ML SDV IV SCH (09:00)
[2024-08-31] MEDS ORDERED: METOPROLOL SUCCINATE 50 MG/TAB PO SCH (09:00)
[2024-08-31] MEDS ORDERED: PANTOPRAZOLE SODIUM Sesquihydr 40 MG/TAB PO SCH (09:00)
[2024-08-31] MEDS ORDERED: SODIUM CHLORIDE 0.9% 500 ML IV ONE ×2 (10:25→19:28)
[2024-08-31] MEDS ORDERED: ESCITALOPRAM 10 MG/TAB PO SCH (11:00)
[2024-08-31] MEDS ORDERED: FUROSEMIDE 40 MG/4 ML SDV IV SCH (11:00)
[2024-08-31] MEDS ORDERED: ATORVASTATIN CALCIUM 40 MG/TAB PO SCH (21:00)
[2024-08-31] MEDS ORDERED: AZITHROMYCIN 500 MG in SODIUM CHLORIDE 0.9% 250 ML IV SCH (22:00)
[2024-09-01 00:07] VITALS: BP 163/95
[2024-09-01 03:44] VITALS: BP 174/104
[2024-09-01 05:41] LABS: ALBUMIN 4.2 g/dL (3.2-5.0); BILIRUBIN, TOTAL 0.5 mg/dL (0.02-1.3); CREATININE 1.3 mg/dL (0.5-1.0); MAGNESIUM 2.3 mg/dL (1.6-2.3); POTASSIUM 4.5 mmol/l (3.5-5.1); TOTAL PROTEIN 7.8 g/dL (6.3-8.2)
[2024-09-01 05:43] LABS: BASO% 0.1 % (0-3); IMMATURE GRANULOCYTES 1.1 % (0.0-5.0); LYMPH% 9.1 % (15-41); MEAN CORPUSCULAR HGB 25.2 pG CALC (26.0-32.0); MONO% 1.9 % (2-13); NEUT# 9.97 thou/uL (2.00-7.15); NEUT% 87.8 % (42-76); RED BLOOD COUNT 4.13 mill/uL (4.20-5.60); RED CELL DISTRI WIDTH 19.4 % (11.5-15.5)
[2024-09-01 05:44] LABS: HEMATOCRIT 34.7 % (37.0-47.0); HEMOGLOBIN 10.4 g/dl (12.0-16.0)
[2024-09-01 07:00] VITALS: BP 179/85
[2024-09-01] MEDS ORDERED: guaiFENesin-CODEINE 200-20 MG/10 ML UDC PO PRN (10:05)
[2024-09-01 10:54] VITALS: BP 162/96
[2024-09-01] MEDS ORDERED: DOXYCYCLINE HYCLATE 100 MG/CAP PO SCH (11:00)
[2024-09-01] MEDS ORDERED: Cefdinir 300 MG/CAP PO SCH (11:00)
[2024-09-01 14:20] VITALS: BP 173/101
[2024-09-01 21:15] VITALS: BP 165/88
[2024-09-02] VITALS (8 sets, daily range): BP systolic 149–194; BP diastolic 68–110
[2024-09-02 04:56] LABS: HEMATOCRIT 33.7 % (37.0-47.0); HEMOGLOBIN 10.2 g/dl (12.0-16.0); MEAN CORPUSCULAR HGB 25.4 pG CALC (26.0-32.0); MEAN CORPUSCULAR HGB CONC 30.3 g/dL CAL (32.0-36.0); RED BLOOD COUNT 4.01 mill/uL (4.20-5.60); RED CELL DISTRI WIDTH 19.5 % (11.5-15.5)
[2024-09-02 05:09] LABS: ALBUMIN 3.6 g/dL (3.2-5.0); BILIRUBIN, TOTAL 0.5 mg/dL (0.02-1.3); CREATININE 1.4 mg/dL (0.5-1.0); MAGNESIUM 2.1 mg/dL (1.6-2.3); POTASSIUM 4.4 mmol/l (3.5-5.1); TOTAL PROTEIN 6.7 g/dL (6.3-8.2)
[2024-09-03] VITALS (8 sets, daily range): BP systolic 154–196; BP diastolic 90–118
[2024-09-03 05:11] LABS: HEMATOCRIT 37.4 % (37.0-47.0); HEMOGLOBIN 11.3 g/dl (12.0-16.0); MEAN CELL VOLUME 83.5 fL CALC (80.0-100.0); MEAN CORPUSCULAR HGB 25.2 pG CALC (26.0-32.0); MEAN CORPUSCULAR HGB CONC 30.2 g/dL CAL (32.0-36.0); RED BLOOD COUNT 4.48 mill/uL (4.20-5.60); RED CELL DISTRI WIDTH 19.2 % (11.5-15.5)
[2024-09-03 05:18] LABS: BILIRUBIN, TOTAL 0.5 mg/dL (0.02-1.3); CREATININE 1.4 mg/dL (0.5-1.0); MAGNESIUM 2.1 mg/dL (1.6-2.3); POTASSIUM 4.5 mmol/l (3.5-5.1); TOTAL PROTEIN 7.3 g/dL (6.3-8.2)
[2024-09-03] MEDS ORDERED: FUROSEMIDE 40 MG/TAB PO SCH (09:00)
[2024-09-03] MEDS ORDERED: traMADol HCL 50 MG/TAB PO PRN (11:30)
[2024-09-03] MEDS ORDERED: LOSARTAN Potassium 50 MG/TAB PO SCH (11:30)
[2024-09-04] VITALS: BP 165/93
[2024-09-04 02:51] VITALS: BP 168/92
[2024-09-04 04:00] VITALS: BP 168/92
[2024-09-04 05:02] LABS: BASO% 0.1 % (0-3); HEMATOCRIT 37.7 % (37.0-47.0); HEMOGLOBIN 11.4 g/dl (12.0-16.0); IMMATURE GRANULOCYTES 1.3 % (0.0-5.0); LYMPH% 12.9 % (15-41); MEAN CELL VOLUME 84.3 fL CALC (80.0-100.0); MEAN CORPUSCULAR HGB 25.5 pG CALC (26.0-32.0); MEAN CORPUSCULAR HGB CONC 30.2 g/dL CAL (32.0-36.0); MONO% 3.9 % (2-13); NEUT# 6.8 thou/uL (2.00-7.15); NEUT% 81.8 % (42-76); RED BLOOD COUNT 4.47 mill/uL (4.20-5.60); RED CELL DISTRI WIDTH 18.8 % (11.5-15.5)
[2024-09-04 05:22] LABS: ALBUMIN 3.8 g/dL (3.2-5.0); BILIRUBIN, TOTAL 0.5 mg/dL (0.02-1.3); CREATININE 1.7 mg/dL (0.5-1.0); MAGNESIUM 2.2 mg/dL (1.6-2.3); POTASSIUM 4.6 mmol/l (3.5-5.1); TOTAL PROTEIN 6.9 g/dL (6.3-8.2)
[2024-09-04 07:29] VITALS: BP 161/96
[2024-09-04] MEDS ORDERED: LOSARTAN Potassium 50 MG/TAB PO SCH (09:00)
[2024-09-04 10:23] VITALS: BP 154/97
[2024-09-04 14:55] VITALS: BP 162/95
[2024-09-04] MEDS ORDERED: LOSARTAN POTASS50 MG PO (15:31)
[2024-09-04] MEDS ORDERED: DOXYCYCLINE100 MG PO (15:31)
[2024-09-04] MEDS ORDERED: LEXAPRO10 MG PO (15:31)
[2024-09-04] MEDS ORDERED: PROTONIX40 M2 PO (15:32)
[2024-09-04] MEDS ORDERED: PREDNISONE10 MG PO (15:32)
[2024-09-04] MEDS ORDERED: VENTOLIN HFA108 MCG IN (15:33)
== END 2024-09-04 17:58 | disposition home or self-care (01) | DRG 291 ==
LOC: ED 16:23 → ED-I 21:42 → ED 21:52 → MS2 21:53
PROVIDERS: Emergency Medicine; Nurse Practitioner Family; ADMIT Internal Medicine; ATTEND Internal Medicine
PROC: 30233N1 Transfusion of Nonautologous Red Blood Cells into Peripheral Vein, Percutaneous Approach (ICD-10-PCS; principal; 2024-08-31)
PROC: 30233N1 Transfusion of Nonautologous Red Blood Cells into Peripheral Vein, Percutaneous Approach (ICD-10-PCS; 2024-08-31)
DX: I13.0 Hypertensive heart and chronic kidney disease with heart failure and stage 1 through stage 4 chronic kidney disease, or unspecified chronic kidney disease (principal); I50.33 Acute on chronic diastolic (congestive) heart failure; J18.9 Pneumonia, unspecified organism; J44.1 Chronic obstructive pulmonary disease with (acute) exacerbation; J44.0 Chronic obstructive pulmonary disease with (acute) lower respiratory infection; D64.9 Anemia, unspecified; N18.9 Chronic kidney disease, unspecified; I25.10 Atherosclerotic heart disease of native coronary artery without angina pectoris; F32.A Depression, unspecified; F17.290 Nicotine dependence, other tobacco product, uncomplicated; T50.916A Underdosing of multiple unspecified drugs, medicaments and biological substances, initial encounter; Z91.128 Patient's intentional underdosing of medication regimen for other reason; Z95.5 Presence of coronary angioplasty implant and graft
CPT/HCPCS: J0456; J0696; J1940; P9016; Q9967